=== PATIENT | female | born 1975 | race Caucasian/White ===

== ENCOUNTER 2019-12-31 15:32 | Outpatient (CLI) | payer OTHER, SELFPAY ==
--- NOTE | 2019-12-31 15:39 | MM_ITS ---
WS: [id number] SCREENING DIGITAL MAMMOGRAM WITH CAD HISTORY: SCREENING COMPARISON: 11/19/2018 Bilateral CC and MLO views submitted. Computer aided detection analyzed. Breast composition: There are scattered areas of fibroglandular density. No suspicious masses, microc alcifications or architectural distortion. MM/[id number] IMPRESSION: BI-RADS: 1-Negative FOLLOW UP: 1 Year Follow-up
== END 2019-12-31 15:33 | disposition home or self-care (01) ==
LOC: RADSHAW 15:37
PROVIDERS: PCP Physician Assistant; Visit Provider Family Medicine
DX: Z12.31 Encounter for screening mammogram for malignant neoplasm of breast (principal)
CPT/HCPCS: 77067

== ENCOUNTER 2020-11-30 18:07 | Emergency (ER) | payer SELFPAY ==
[2020-11-30 18:31] VITALS: BP 139/87; PULSE 100; RESP 18; TEMP 36.7; O2SAT 100; BMI 29.9
--- NOTE | 2020-11-30 18:39 | CTR_ITS ---
PROCEDURE INFORMATION: Exam: CT Head Without Contrast Exam date and time: 11/30/2020 6:41 PM Age: 45 years old Clinical indication: Syncope and collapse; Additional info: Stroke like symptoms. High BP, syncope on Monday, sinus pressure TECHNIQUE: Imaging protocol: Computed tomography of the head without contrast. Total images: 189 Radiation optimization: All CT scans at this facility use at least one of these dose optimization techniques: automated exposure control; mA and/or kV adjustment per patient size (includes targeted exams where dose is matched to clinical indication); or iterative reconstruction. COMPARISON: No relevant prior studies available. RADIATION DOSE METRICS: Total DLP (mGy-cm): 759.86 FINDINGS: Brain: No evidence of active or acute intracranial pathologic process, hemorrhage, or trauma. No visible evidence of diffuse cerebral edema or generalized demyelination. No mass effect. No midline shift. No visible hyperdense MCA or insular ribbon sign. No findings suggest the presence of posterior reversible encephalopathy syndrome (PRES). Cerebral ventricles: No ventriculomegaly. Bones/joints: Unremarkable. No acute fracture. Paranasal sinuses: Visualized sinuses are unremarkable. No fluid levels. Mastoid air cells: Visualized mastoid air cells are well aerated. Soft tissues: Unremarkable. CT/CT head wo con* [id number] IMPRESSION: No evidence of active or acute intracranial pathologic process, hemorrhage, or trauma. Radiation Dose CTDIVOL = (mGy): DLP = 759.86 (mGy-cm)
--- NOTE | 2020-11-30 18:50 | PC.NURSE ---
Pt is now in CT.
[2020-11-30 19:00] VITALS: BP 127/98; PULSE 92; RESP 16; TEMP 36.7; O2SAT 98
--- NOTE | 2020-11-30 19:08 | PC.PHAR ---
pt states she takes care of her own medications-medications entered are meds the pt states she takes-pts pharmacy [facility] is not open to verify meds-none of these medications pull up on ext med history
--- NOTE | 2020-11-30 19:10 | ECG_ITS ---
[facility] [place] [facility] Date: 2020-11-30 Pat Name: Adrienne Stuart Department: Room: Gender: Female Cart[employer] Feeder: : [id number] Requested By: Chetan Velez Order Number: [id number] Callahan MD: Poli Whitley M.D. Measurements Intervals [place] Rate: 99 P: 26 ND: 144 QRS: -4 QRSD: 100 T: 8 QT: 372 QTc: 478 Interpretive Statements SINUS RHYTHM VOLTAGE CRITERIA FOR LVH [MEETS CRITERIA IN ONE OF: R(aVL), S(V1), R(V5), R(V5/V6)+S(V1)] MODERATE ST DEPRESSION [0.05+ mV ST DEPRESSION] No previous ECG available for comparison Electronically Signed On 12-01-2020 9:25:00 CDT by Poli Whitley M.D. [id number]
--- NOTE | 2020-11-30 19:27 | CTR_ITS ---
PROCEDURE INFORMATION: Exam: CTA Chest With Contrast Exam date and time: 11/30/2020 7:33 PM Age: 45 years old Clinical indication: Shortness of breath; Additional info: Tachycardia, SOB, near syncope TECHNIQUE: Imaging protocol: Computed tomographic angiography of the chest with contrast. 3D rendering (Not supervised by radiologist): MIP and/or 3D reconstructed images were created by the technologist. Total images: 814 Radiation optimization: All CT scans at this facility use at least one of these dose optimization techniques: automated exposure control; mA and/or kV adjustment per patient size (includes targeted exams where dose is matched to clinical indication); or iterative reconstruction. Contrast material: OMNI 350; Contrast volume: 72 ml; Contrast route: INTRAVENOUS (IV); COMPARISON: [facility] Chest 2 views 07/31/2017 11:21 AM RADIATION DOSE METRICS: Total DLP (mGy-cm): 523.42 FINDINGS: Pulmonary arteries: No visible evidence of pulmonary embolism/pulmonary arterial thrombus. Aorta: The thoracic aorta is nonaneurysmal. No visible intimal flap or dissection. Thyroid: Inferior pole right thyroid nodule measuring 15 mm. Follow-up non-emergent thyroid ultrasound is recommended. Lungs: No visible active interstitial or alveolar airspace disease. Pleural spaces: Unremarkable. No pneumothorax. No pleural effusion. Heart: No cardiomegaly. No visible pericardial effusion. No visible coronary artery disease. Lymph nodes: No findings raising suspicion for active mediastinal or hilar lymphadenopathy. Gallbladder and bile ducts: Status post cholecystectomy. Bones/joints: No visible active or acute osseous pathology. Soft tissues: Unremarkable. CT/CT angio chest PE protcl [id number] IMPRESSION: 1. No visible evidence of pulmonary embolism/pulmonary arterial thrombus. 2. Inferior pole right thyroid nodule measuring 15 mm. Follow-up non-emergent thyroid ultrasound is recommended. COMMENTS: Consistent with the [employer]'s Incidental Findings Committee white paper (J Am Lena Radiol 2015): In patients aged 35 years and older with an incidental thyroid nodule equal to or greater than 1.[address], MRI or extrathyroidal US, further evaluation with dedicated thyroid US is recommended for patients with normal life expectancy and without comorbidities. For smaller nodules without suspicious features, no further evaluation or follow up is recommended. Radiation Dose CTDIVOL = (mGy): DLP = 523.42 (mGy-cm)
--- NOTE | 2020-11-30 19:48 | ED_ITS ---
HPI - General Adult General: Chief complaint: General Medical Stated complaint: phy ref/stroke like symptoms Time Seen by Provider: 11/30/20 18:38 History of Present Illness: HPI narrative: Patient is a well-appearing 45-year-old female seen for multiple complaints. Most concerning the, she relates that she has bouts of hypertension rising to as much as 230/120 lasting for hours to days. She says that when her blood pressure rises this high, she feels lightheaded, becomes flushed, and sometimes sweats. At times, she feels chest pain as well. Her father in his 50s from heart disease. She takes multiple antihypertensive medications and states that the symptoms come despite strict adherence to her regimen. Most concerning the, there was a 15 to 20- minute time when her could not arouse her. She was laying on the couch comfortably, breathing of her own volition, with no seizure-like activity. When she awoke, she felt groggy, and checked her blood pressure and found it to be 230 systolic. This episode occurred on Monday the . Additionally, she states that with normal activity, walking up or down stairs, walking around the house, she now becomes much more fatigued and short of breath. 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 She also endorses mild pedal edema which is new for her over the last several weeks. She denies history of blood clots in the legs or lungs, does not smoke, and is not diabetic. She has no recent history of prolonged immobilization. She has no other acute complaints. Review of Systems General: Reports: 10 or more systems reviewed and unremarkable except in HPI and below PFSH ED PFSH: Medical History Asthma HTN (hypertension) Migraines Surgical History Hx of oophorectomy Social History Smoking and tobacco status: never smoked Second hand smoke exposure: No Physical Exam Const: COMMON NORMALS: no acute distress, patient oriented x3 and alert HENMT: COMMON NORMALS: normocephalic and atraumatic HEAD & SCALP: normocephalic and atraumatic Eye: COMMON NORMALS: Equal, round and reactive pupils present, EOMs intact bilaterally and no scleral icterus PUPIL: Yes Equal, round and reactive pupils present Resp: COMMON NORMALS: normal respiratory effort and No retractions Cardio: COMMON NORMALS: regular rhythm and No murmurs present (Cardio) RATE: tachycardic RHYTHM: regular rhythm GI: COMMON NORMALS: Normal to inspection, nondistended, normoactive bowel sounds present, Soft to palpation and non-tender PALPATION: Yes Soft to palpation Extremity: NARRATIVE EXTREMITY EXAM: Trace edema to the bilateral feet Neuro: COMMON NORMALS: patient oriented x3 SENSORIUM/ORIENTATION: Yes alert Skin: COMMON NORMALS: no rashes or lesions noted GENERAL SKIN EXAM: no rashes or lesions noted Course Vital Signs: Vital signs: Vital Signs Temperature 98.0 F 11/30/20 21:27 Pulse Rate 93 11/30/20 21:27 Respiratory Rate 21 H 11/30/20 21:27 Blood Pressure 123/71 11/30/20 21:27 Pulse Oximetry 100 11/30/20 21:27 MDM - General Adult MDM Narrative: Medical decision making narrative: And arrived mildly tachycardic, but otherwise hemodynamically stable. CT head and CTA chest shows no evidence of acute pathology. TSH is within normal limits. I do not suspect PE, stroke, hypothyroidism, pneumonia, or any other emergent process warranting further work-up at this time. There is no evidence of arrhythmia besides sinus tachycardia which is mild. Troponin and BNP are normal. I advised the patient that she should return to the emergency department if her symptoms get worse before outpatient follow-up. We discussed the possibility of pheochromocytoma and she agrees to follow-up with primary care to have a urine metanephrine test performed. Lab Data: Labs: Lab Results 11/30/20 11/30/20 Range/Units 20:00 20:00 WBC 9.7 (4.0-10.0) 10^3/ uL RBC 4.27 (4.1-5.3) 10^6/u L Hgb 12.2 (11.5-15.3) g/dL Hct 36.7 L (37.0-47.0) % MCV 85.9 (81-99) fL MCH 28.6 (28.0-34.0) pg MCHC 33.2 (30.0-36.0) g/dL RDW 13.3 (12.1-15.1) % Plt Count 374 (130-400) 10^3/c mm MPV 9.8 (7.4-10.4) fL Neut % (Auto) 56.9 % Lymph % (Auto) 34.4 % Leon % (Auto) 6.5 % Eos % (Auto) 1.4 % Baso % (Auto) 0.5 % Neut # (Auto) 5.51 (1.8-7.7) 10^3/u L Lymph # (Auto) 3.3 (0.8-4.8) 10^3/u L Leon # (Auto) 0.6 (0.2-0.9) 10^3/u L Eos # (Auto) 0.1 (0.0-0.8) 10^3/u L Baso # (Auto) 0.1 (0.0-0.1) 10^3/u L Nucleated RBC % (a uto) 0 % Nucleated RBCs # 0.0 /100WBC Sodium 138 (136-145) mmol/L Potassium 3.3 L (3.5-5.1) mmol/L Chloride 98 (98-107) mmol/L Carbon Dioxide 26 (22-29) mmol/L Anion Gap 17.3 (5-19) BUN 8 (6-20) mg/dL Creatinine 0.5 (0.5-0.9) mg/dL GFR Calculation 134.0 H (90-130) mL/min Glucose 82 (65-115) mg/dL Calculated Osmolal ity 283 L (285-295) mOsm/k g Calcium 8.8 (8.5-10.5) mg/dL Magnesium 2.1 (1.7-2.3) mg/dL Total Bilirubin 0.4 (0.15-1.2) mg/dL AST 24 (0-32) U/L ALT 40 H (0-33) U/L Alkaline Phosphata se 99 (35-105) IU/L NT-Pro-B Natriuret Pep 14 (0-125) pg/mL Total Protein 6.7 (6.6-8.7) g/dL Albumin 4.5 (3.5-5.2) g/dL Globulin 2.2 (1.3-4.6) g/dL TSH 3.88 (0.27-4.20) uIU/ mL EKG Data^: EKG 1: Interpretation: Time?1916, date November 30, 2020, sinus rhythm with mild LVH, rate of 99, no ST elevation or depression, intervals within normal limits. Computer generated interpretation: Head CT 11/30/20 18:39 IMPRESSION: No evidence of active or acute intracranial pathologic process, hemorrhage, or trauma. Radiation Dose CTDIVOL = (mGy): DLP = 759.86 (mGy-cm) ADDENDUM: 11/30/20 193 THIS REPORT CONTAINS FINDINGS THAT MAY BE CRITICAL TO PATIENT CARE. The findings were verbally communicated via telephone conference with Chetan Velez at 7:31 PM CDT on 11/30/2020. The findings were acknowledged and understood. Radiation Dose CTDIVOL = (mGy): DLP = 759.86 (mGy-cm) Chest CTA 11/30/20 19:27 IMPRESSION: 1. No visible evidence of pulmonary embolism/pulmonary arterial thrombus. 2. Inferior pole right thyroid nodule measuring 15 mm. Follow-up non-emergent thyroid ultrasound is recommended. COMMENTS: Consistent with the [employer]'s Incidental Findings Committee white paper (J Am Lena Radiol 2015): In patients aged 35 years and older with an incidental thyroid nodule equal to or greater than 1.[address], MRI or extrathyroidal US, further evaluation with dedicated thyroid US is recommended for patients with normal life expectancy and without comorbidities. For smaller nodules without suspicious features, no further evaluation or follow up is recommended. Radiation Dose CTDIVOL = (mGy): DLP = 523.42 (mGy-cm) Discharge Plan Discharge Patient Disposition: Home Condition: Stable Prescriptions: No Action losartan 50 mg tablet 50 mg PO BID RF: 0 budesonide-formoterol [Symbicort] 160-4.5 mcg/actuation HFA aerosol inhaler 2 puff inhalation BID RF: 0 Zyrtec 10 mg capsule 10 mg PO QAM RF: 0 amitriptyline 100 mg tablet 100 mg PO BEDTIME RF: 0 hydrochlorothiazide 25 mg tablet 25 mg PO QAM RF: 0 omeprazole [Prilosec] 40 mg Capsule,Delayed Release(Dr/Ec) 40 mg PO DAILY RF: 0 ibuprofen 200 mg Tablet 800 mg PO PRN RF: 0 levalbuterol HCl [Xopenex] 1.25 mg/3 mL Solution For Nebulization 1.25 mg INHALATION PRN RF: 0 fluticasone propionate [Flonase] 50 mcg/actuation [place],Suspension 2 spray INTRANASAL BID RF: 0 Excedrin Migraine 250-250-65 mg Tablet 2 tab PO PRN RF: 0 levalbuterol tartrate [Xopenex HFA] 45 mcg/actuation Hfa Aerosol Inhaler 2 inh INHALATION Q6H PRN (Reason: Shortness Of Breath) RF: 0 Adult Multivitamin Gummies 200 mcg Tablet,Chewable 400 tab PO DAILY RF: 0 potassium chloride 20 mEq Tablet Extended Release 20 meq PO DAILY RF: 0 vitamin E 1 cap PO DAILY RF: 0 Discharge Orders: Discharge ED (Routine); Ordered 11/30/20 Ordered By: Chetan Velez Referrals: Shaw Jarquin [Primary Care Provider] - Discharge Diet: Usual diet Discharge Activity: Resume usual activity Patient Instructions: Opioid Safety Activity Restrictions/Additional Instructions: Your testing today was all reassuring. There is no evidence of infection, new or old heart attack, fluid on the lungs, blood clot, or stroke. Your main mildly tachycardic without explanation. Given your history of intermittent hypertension and symptoms, I am curious whether you may have a pheochromocytoma. You can follow-up with your primary care physician or any other physician clinic to have a urine metanephrine test performed to rule this out. If your symptoms get worse, please do not hesitate to return to the emergency department. Coding Level of Care Code ED [employer] Technician for [employer] Fwd Exam Detailed
[2020-11-30] MEDS: sodium chloride 0.9% 1,000 ML 999 ML IV ×2 (20:00→21:36)
[2020-11-30 20:04] LABS: Basophils # 0.1 10^3/uL (0.0-0.1); Basophils % 0.5 %; Eosinophils # 0.1 10^3/uL (0.0-0.8); Eosinophils % 1.4 %; Hematocrit 36.7 % (37.0-47.0); Hemoglobin 12.2 g/dL (11.5-15.3); Lymphocytes # 3.3 10^3/uL (0.8-4.8); Lymphocytes % 34.4 %; Mean Corpuscular HGB Conc 33.2 g/dL (30.0-36.0); Mean Corpuscular Hemoglobin 28.6 pg (28.0-34.0); Mean Corpuscular Volume 85.9 fL (81-99); Mean Platelet Volume 9.8 fL (7.4-10.4); Monocytes # 0.6 10^3/uL (0.2-0.9); Monocytes % 6.5 %; Neutrophils # 5.51 10^3/uL (1.8-7.7); Neutrophils % 56.9 %; Nucleated Red Blood Cells % 0 %; Platelet Count 374 10^3/cmm (130-400); Red Blood Count 4.27 10^6/uL (4.1-5.3); Red Cell Distribution Width 13.3 % (12.1-15.1); White Blood Count 9.7 10^3/uL (4.0-10.0)
[2020-11-30] MEDS: iohexol 350 mg/mL 100 mL Btl IV (20:18)
[2020-11-30 20:30] VITALS: BP 139/83; PULSE 96; RESP 15; TEMP 36.8; O2SAT 98
[2020-11-30 20:34] LABS: Alanine Aminotransferase 40 U/L (0-33); Albumin Level 4.5 g/dL (3.5-5.2); Alkaline Phosphatase 99 IU/L (35-105); Anion Gap 17.3 (5-19); Aspartate Amino Transferase 24 U/L (0-32); Blood Urea Nitrogen 8 mg/dL (6-20); Calcium 8.8 mg/dL (8.5-10.5); Carbon Dioxide 26 mmol/L (22-29); Chloride 98 mmol/L (98-107); Creatinine Clr Calc Pharmacy 151.5466; Globulin 2.2 g/dL (1.3-4.6); Glucose 82 mg/dL (65-115); Magnesium 2.1 mg/dL (1.7-2.3); NT Pro B Type Natriuretic Pept 14 pg/mL (0-125); Osmolality Calculated 283 mOsm/kg (285-295); Potassium 3.3 mmol/L (3.5-5.1); Sodium 138 mmol/L (136-145); Thyroid Stimulating Hormone 3.88 uIU/mL (0.27-4.20); Total Bilirubin 0.4 mg/dL (0.15-1.2); Total Protein 6.7 g/dL (6.6-8.7)
[2020-11-30] MEDS: diphenhydrAMINE 50 mg/mL SDV 1mL 25 MG IVP (21:20)
[2020-11-30 21:27] VITALS: BP 123/71; PULSE 93; RESP 21; TEMP 36.7; O2SAT 100
[2020-11-30] MEDS: prochlorperazine 10 mg Tablet PO (21:30)
== END 2020-11-30 22:36 | disposition home or self-care (01) ==
PROVIDERS: Emergency Provider Student in an Organized Health Care Education/Training Program; PCP Family Medicine
DX: R00.0 Tachycardia, unspecified (principal); I10 Essential (primary) hypertension
CPT/HCPCS: 70450; 71275; 80053; 83735; 83880; 84443; 85025; 93005; 96361; 96374; 99284; J1200; J7030; Q0164; Q9967

== ENCOUNTER 2021-01-22 15:10 | Outpatient (CLI) | payer OTHER, SELFPAY ==
--- NOTE | 2021-01-22 15:18 | MM_ITS ---
WS: [id number] BILATERAL SCREENING DIGITAL MAMMOGRAM WITH CAD HISTORY: SCREENING COMPARISON: 12/31/2019 and 11/19/2018 Bilateral CC and MLO views submitted. Computer aided detection analyzed. Breast composition: There are scattered areas of fibroglandular density. No suspicious masses, microc alcifications or architectural distortion. MM/[id number] IMPRESSION: BI-RADS: 1-Negative FOLLOW UP: 1 Year Follow-up
== END 2021-01-22 15:11 | disposition home or self-care (01) ==
PROVIDERS: PCP Family Medicine; Visit Provider Nurse Practitioner Family
DX: Z12.31 Encounter for screening mammogram for malignant neoplasm of breast (principal)
CPT/HCPCS: 77067

== ENCOUNTER 2022-03-16 08:28 | Outpatient (CLI) | payer OTHER, SELFPAY ==
--- NOTE | 2022-03-16 08:39 | MM_ITS ---
WS: [id number] BILATERAL SCREENING DIGITAL TOMOSYNTHESIS MAMMOGRAM WITH CAD HISTORY: SCREENING COMPARISON: 01/22/2021 and 12/31/2019 Bilateral CC and MLO views with tomosynthesis and synthetic mammography submitted. Computer aided det ection analyzed. Breast composition: There are scattered areas of fibroglandular density. No suspicious masses, microc alcifications or architectural distortion. MM/[place] [id number] IMPRESSION: BI-RADS: 1-Negative FOLLOW UP: 1 Year Follow-up
== END 2022-03-16 08:29 | disposition home or self-care (01) ==
PROVIDERS: PCP Family Medicine; Visit Provider Nurse Practitioner Family
DX: Z12.31 Encounter for screening mammogram for malignant neoplasm of breast (principal)
CPT/HCPCS: 77063; 77067

== ENCOUNTER 2023-04-19 09:48 | Outpatient (CLI) | payer OTHER, SELFPAY ==
--- NOTE | 2023-04-19 09:54 | MM_ITS ---
WS: [id number] SCREENING DIGITAL TOMOSYNTHESIS MAMMOGRAM WITH CAD HISTORY: SCREENING COMPARISON: 03/16/2022 and 01/22/2021 Bilateral CC and MLO with tomosynthesis views submitted. Synthetic mammography reviewed. Computer aid ed detection analyzed. Breast composition: There are scattered areas of fibroglandular density. No suspicious masses, microc alcifications or architectural distortion. IMPRESSION: MM/[place] [id number] BI-RADS: 1-Negative FOLLOW UP: 1 Year Follow-up
== END 2023-04-19 09:49 | disposition home or self-care (01) ==
PROVIDERS: PCP Family Medicine; Visit Provider Family Medicine
DX: Z12.31 Encounter for screening mammogram for malignant neoplasm of breast (principal)
CPT/HCPCS: 77063; 77067

== ENCOUNTER 2024-07-01 09:17 | Outpatient (CLI) | payer OTHER, SELFPAY ==
--- NOTE | 2024-07-01 09:18 | MM_ITS ---
WS: [id number] BILATERAL SCREENING DIGITAL TOMOSYNTHESIS MAMMOGRAM WITH CAD HISTORY: SCREENING COMPARISON: 04/19/2023, 03/16/2022 Bilateral CC and MLO views with tomosynthesis and synthetic mammography submitted. Computer aided det ection analyzed. Breast composition: There are scattered areas of fibroglandular density. No suspicious masses, microc alcifications or architectural distortion. MM/MM scr BI tomosynthesis [id number] IMPRESSION: BI-RADS: 1 - Negative. FOLLOW UP: 1 Year Follow-up
== END 2024-07-01 09:18 | disposition home or self-care (01) ==
LOC: RAD 09:18
PROVIDERS: PCP Nurse Practitioner Family; Visit Provider Nurse Practitioner Family
DX: Z12.31 Encounter for screening mammogram for malignant neoplasm of breast (principal); R92.323 Mammographic fibroglandular density, bilateral breasts
CPT/HCPCS: 77063; 77067